=== PATIENT | male | born 1950 | race American Indian/Alaskan Native ===

== ENCOUNTER 2017-02-27 15:11 | Emergency (ER) | payer MEDICARE, OTHER ==
[2017-02-27 15:30] VITALS: BP 159/97; PULSE 71; TEMP 98.2; O2SAT 99
--- NOTE | 2017-02-27 16:02 | C.PDOC ---
History Of Present Illness 66 y/o male presents to the ED requesting heroin detox. Pt was in skilled nursing for 5 years, got out 2 months ago and started using heroin again. Pt has been using since age 14. Pt homeless without job. Now using 3-4 bags heroin daily. Denies any physical complaints or pmhx. Time Seen by Provider: 02/27/17 15:44 Chief Complaint (Nursing): Substance Abuse History Per: Patient History/Exam Limitations: no limitations Onset/Duration Of Symptoms: Days Suicide/Self Injury Attempted (Context): None Modifying Factor(s): Narcotics Severity: Mild Involuntary Hold By: None Recent travel outside of the [place]: No Past Medical History Reviewed: Historical Data, Nursing Documentation, Vital Signs Vital Signs: Last Vital Signs Temp 98.2 F 02/27/17 15:26 Pulse 71 02/27/17 15:26 Resp 18 02/27/17 16:04 BP 159/97 H 02/27/17 15:26 Pulse Ox 99 02/27/17 16:04 - Medical History PMH: HTN Family History: States: Unknown Family Hx - Social History Hx Alcohol Use: Yes Hx Substance Use: Yes Review Of Systems Except As Marked, All Systems Reviewed And Found Negative. Constitutional: Negative for: Fever Cardiovascular: Negative for: Chest Pain Respiratory: Negative for: Shortness of Breath Gastrointestinal: Negative for: Vomiting Neurological: Negative for: Headache Physical Exam - Physical Exam Appears: Non-toxic, No Acute Distress Skin: Warm, Dry, No Rash Head: Atraumatic, Normacephalic Neck: Normal, Normal ROM, Supple Chest: Symmetrical, No Tenderness Cardiovascular: Rhythm Regular, No Murmur Respiratory: Normal Breath Sounds, No Rales, No Rhonchi, No Wheezing Extremity: Bilateral: Atraumatic Neurological/Psych: Oriented x3 ED Course And Treatment O2 Sat by Pulse Oximetry: 99 (room air) Pulse Ox Interpretation: Normal Progress Note: Gave resources and custodial info to patient. No beds available at this time. Disposition - Disposition Disposition: HOME/ ROUTINE Disposition Time: 16:05 Condition: STABLE - Clinical Impression Clinical Impression: Opiate abuse, continuous - Scribe Statement The provider has reviewed the documentation as recorded by the Job López Provider Attestation: All medical record entries made by the Yobaniibrosa isela were at my direction and personally dictated by me. I have reviewed the chart and agree that the record accurately reflects my personal performance of the history, physical exam, medical decision making, and the department course for this patient. I have also personally directed, reviewed, and agree with the discharge instructions and disposition.
[2017-02-27 16:05] VITALS: RESP 18
== END 2017-02-27 16:04 | disposition home or self-care (01) ==
LOC: C.ER 15:11
DX: F11.10 Opioid abuse, uncomplicated (principal); Z59.0 Homelessness

== ENCOUNTER 2017-02-28 09:08 | Inpatient (IN) | payer MEDICARE, MEDICAID ==
--- NOTE | 2017-02-28 09:47 | C.PDOC ---
History Of Present Illness 66 y/o male presents to ED requesting alcohol and heroin detox. Patient was seen in ER yesterday for similar. Notes last use was yesterday. Denies any other medical complaints at this time. No suicidal or homicidal ideation. Time Seen by Provider: 02/28/17 09:24 Chief Complaint (Nursing): Substance Abuse History Per: Patient History/Exam Limitations: no limitations Onset/Duration Of Symptoms: Persistent Current Symptoms Are (Timing): Still Present Modifying Factor(s): Alcohol, Narcotics Associated Symptoms: denies: Suicidal Thoughts, Suicidal Plan Recent travel outside of the [place]: No Past Medical History Reviewed: Historical Data, Nursing Documentation, Vital Signs Vital Signs: Last Vital Signs Temp 97.8 F 02/28/17 09:15 Pulse 85 02/28/17 09:15 Resp 16 02/28/17 09:15 BP 158/96 H 02/28/17 09:15 Pulse Ox 98 02/28/17 09:47 - Medical History PMH: HTN Family History: States: Unknown Family Hx - Social History Hx Alcohol Use: Yes Hx Substance Use: Yes - Immunization History Hx Influenza Vaccination: No Review Of Systems Except As Marked, All Systems Reviewed And Found Negative. Constitutional: Negative for: Fever, Chills Cardiovascular: Negative for: Chest Pain, Palpitations Respiratory: Negative for: Shortness of Breath Gastrointestinal: Negative for: Vomiting, Abdominal Pain, Diarrhea Skin: Negative for: Rash Neurological: Negative for: Dizziness Psych: Negative for: Withdrawal Physical Exam - Physical Exam Appears: Non-toxic, No Acute Distress Skin: Warm, Dry Head: Atraumatic, Normacephalic Oral Mucosa: Moist Chest: Symmetrical Cardiovascular: Rhythm Regular Respiratory: Normal Breath Sounds, No Rales, No Rhonchi, No Wheezing Gastrointestinal/Abdominal: Soft, No Tenderness Back: Normal Inspection Extremity: Normal ROM, Capillary Refill (< 2 sec. ) Neurological/Psych: Oriented x3 ED Course And Treatment O2 Sat by Pulse Oximetry: 98 (RA) Pulse Ox Interpretation: Normal Medical Decision Making Medical Decision Making: Plan: * Crisis eval * Labs * Reassess Progress: - PA / [employer] / Resident Statement MD/DO has reviewed & agrees with the documentation as recorded. - Scribe Statement The provider has reviewed the documentation as recorded by the Job Tarango Provider Scribe Attestation: All medical record entries made by the Scribe were at my direction and personally dictated by me. I have reviewed the chart and agree that the record accurately reflects my personal performance of the history, physical exam, medical decision making, and the department course for this patient. I have also personally directed, reviewed, and agree with the discharge instructions and disposition.
[2017-02-28 09:48] LABS: RBC URINE 1 /hpf (0-3); URINE BILIRUBIN NEGATIVE (NEGATIVE); URINE BLOOD NEGATIVE (NEGATIVE); URINE GLUCOSE (UA) NORMAL (Normal); URINE KETONE NEGATIVE (NEGATIVE); URINE LEUKOCYTE ESTERASE NEG Leu/uL (Negative); URINE PROTEIN NEGATIVE (NEGATIVE); URINE UROBILINOGEN NORMAL mg/dL (0.2-1.0); WBC URINE 2 /hpf (0-5)
[2017-02-28 09:51] LABS: URINE COLOR LIGHT YELLOW (YELLOW)
[2017-02-28 10:26] LABS: BASO # 0.1 K/uL (0.0-0.2); BASO % 0.5 % (0.0-2.0); EOS # 0.5 K/uL (0.0-0.7); EOS % 3.9 % (0.0-4.0); HEMATOCRIT 46.1 % (35.0-51.0); LYMPH # 2.2 K/uL (1.0-4.3); LYMPH % 18.1 % (20.0-40.0); MEAN CELL VOLUME 96.1 fL (80.0-94.0); MEAN CORPUSCULAR HGB CONC 32.3 g/dL (33.0-37.0); MONO # 0.9 K/uL (0.0-0.8); MONO % 7.5 % (0.0-10.0); RED CELL DISTRIBUTION WIDTH 13.3 % (11.5-14.5); WHITE BLOOD COUNT 12.3 K/uL (4.8-10.8)
[2017-02-28 10:45] LABS: CHLORIDE 103 mmol/L (98-107); POTASSIUM 4.1 mmol/L (3.6-5.2); SODIUM 140 mmol/L (132-148)
[2017-02-28 10:47] LABS: BILIRUBIN,TOTAL 0.8 mg/dL (0.2-1.3); CARBON DIOXIDE 24 mmol/L (22-30); GFR AFRICAN-AMERICAN > 60
[2017-02-28 10:48] LABS: ALB/GLOB RATIO 1.3 (1.0-2.1); ALCOHOL SERUM < 10 mg/dl (0-10); ALKALINE PHOSPHATASE 72 U/L (38-126); ALT/SGPT 15 U/L (21-72); AST/SGOT 43 U/L (17-59); BLOOD UREA NITROGEN 22 mg/dL (9-20); CALCIUM 9.2 mg/dl (8.6-10.4); GLUCOSE,RANDOM 97 mg/dL (75-110); TOTAL PROTEIN 8.3 g/dL (6.3-8.3)
[2017-02-28] MEDS ORDERED: Aluminum Hydroxide/Magnesium Hydroxide Susp (30 mL) PO PRN (12:16)
--- NOTE | 2017-02-28 13:34 | PCM.PSYCH ---
Initial Psychiatric Evaluation - Initial Psychiatric Evaluation Type of Admission: Voluntary Legal Status: Capacity Chief Complaint (in patient's own words): "I need help" History of Present Illness and Precipitating Events: The patient is seen, chart reviewed and case discussed. This is a 66-year-old -Prydeinig male, we don't, has 1 daughter who is an adult, currently homeless, retired hoist worker. The patient states [facility] after 4-1/2 years and since then he has been using heroine and alcohol. Heroin is 3 bags per day and sometimes more and alcoholism more than 20 beers. He describes withdrawal symptoms from both. He smokes 10 cigarettes a day but refuses patch. He denies all other drugs. He has started using drugs "long ago." He has been to detox in the past but no rehabilitation. He has a long history of incarceration due to various reasons but overall he is pleasant, cooperative and looks motivated. He denies psychiatric symptoms Past psych history: Panic attacks. Family psych history: Denies Medical history: Fibromyalgia and high blood pressure. Current Medications: Active Medications Generic Name Dose Route Start Last Admin Trade Name Freq PRN Reason Stop Dose Admin Al Hydrox/Mg Hydrox/Simethicone 30 ml 02/28/17 12:16 Maalox 30 Ml PO TID PRN Indigestion / Heartburn Clonidine HCl 0.1 mg 02/28/17 12:16 Catapres PO Q8 PRN COWS Score More or Equal to 5 Hydroxyzine HCl 25 mg 02/28/17 12:17 Atarax PO Q4H PRN Anxiety Ibuprofen 400 mg 02/28/17 12:17 Motrin Tab PO Q6H PRN Pain, moderate (4-7) Loperamide HCl 2 mg 02/28/17 12:16 Imodium PO Q8 PRN Diarrhea Ondansetron HCl 4 mg 02/28/17 12:16 Zofran Tab PO Q8 PRN Nausea/Vomiting Trazodone HCl 50 mg 02/28/17 12:17 Desyrel PO HS PRN Insomnia Past Psychiatric History - Past Psychiatric History Previous Treatment History: None Pertinent Medical Hx (Current Medical&Sleep Prob, Allergies): Allergies Allergy/AdvReac Type Severity Reaction Status Date / Time No Known Allergies Allergy Verified 02/28/17 09:19 No Known Home Med 05/04/17 Review of Systems - Neurological Neurological: UNREMARKABLE - Psychiatric Psychiatric: Abnormal Sleep Pattern, Anxiety. absent: Hallucinations, Homicidal Ideation, Hopelessness, Paranoia, Suicidal Ideation Mental Status Examination - Personal Presentation Personal Presentation: Looks stated age - Affect Affect: Broad - Motor Activity Motor Activity: Calm - Reliability in Providing Information Reliability in Providing Information: Good - Speech Speech: Organized - Mood Mood: Anxious - Formal Thought Process Formal Thought Process: No Impairment - Cognitive Functions Orientation: Person, Place, Situation, Time Sensorium: Alert Attention/Concentration: Attentive Estimate of Intelligence: Average Judgement: Intact, as evidence by: Insight regarding need for hospitalization Memory: Recent intact, as evidence by: Ability to recall events of the day, Remote intact, as evidenced by: Abilit to recall sig. life events - Risk Risk: Withdrawal, Diminished functioning - Strength & Assets Inventory Strength & Assets Inventory: Cooperative - Limitations Limitations: Living alone DSM 5 DX - DSM 5 DSM 5 Diagnosis: Opioid withdrawal Opioid use disorder, moderate Alcohol use disorder, severe Alcohol withdrawal High blood pressure Fibromyalgia - Recommended/Plan of Treatment Treatment Recommendations and Plan of Treatment: Opioids: -Subutex detox -Support and psychoeducation -As needed medications -Attend groups and activities -NC and CBT Alcohol: -Librium detox -Gabapentin -Support and psychoeducation -As needed medications and vitamins -Attend groups and activities -NC and CBT for abstinence High blood pressure and fibromyalgia: -meds resumed -gabapentin for pain 33 min Projected ELOS: 4 or 5 days Prognosis: good with treatment Discharge Plan and Discharge Criteria: no withdrawal symptoms [facility] - Smoking Cessation Smoking Cessation Initiated: Yes
[2017-02-28] MEDS: Multiple Vitamins Tab PO SCH (14:42)
[2017-03-01] MEDS: Multiple Vitamins Tab PO SCH (09:48)
--- NOTE | 2017-03-01 10:15 | PCM.PYCHPN ---
Psychiatric Progress Note - Psychiatric Progress Note Patient seen today, length of contact: 16 min Patient Chief Complaint: I'm feeling better" Problems Identified/Issues Discussed: Pt is seen, chart reviewed, case discussed. Pt reports that he feels better today. He had a good night of sleep last night. He is complaining of night sweats, restless legs, and runny nose. He denies any tremors, abdominal cramping, nausea, vomiting, or diarrhea. Pt denies any medication side effects. He would like to go to [facility] after detox. Pt denies any anxiety or depression. Pt denies S/I. Support and psychoeducation given. Mental Status Examination - Cognitive Function Orientation: Person, Place, Situation, Time Memory: Intact Attention: WNL Concentration: Poor Association: WNL Fund of Knowledge: Poor - Mood Mood: Anxious - Affect Affect: Broad - Speech Speech: Soft - Formal Thought Process Formal Thought Process: No Impairment - Suicidal Ideation Suicidal Ideation: No - Homicidal Ideation Homicidal Ideation: No Goal/Treatment Plan - Goal/Treatment Plan Need for Continued Stay: Discharge may exacerbated symptoms, Severe functional impairment Progress Toward Problem(s) and Goals/Treatment Plan: Opioids: -Subutex detox -Support and psychoeducation -As needed medications -Attend groups and activities -DC and CBT Alcohol: -Librium detox -Gabapentin -Support and psychoeducation -As needed medications and vitamins -Attend groups and activities -DC and CBT for abstinence High blood pressure and fibromyalgia: -meds resumed -gabapentin for pain - Smoking Cessation Smoking Cessation Initiated: No
[2017-03-02] MEDS: Multiple Vitamins Tab PO SCH (09:47)
--- NOTE | 2017-03-02 11:54 | PCM.PYCHPN ---
Psychiatric Progress Note - Psychiatric Progress Note Patient seen today, length of contact: 16 min Patient Chief Complaint: I'm Still withdrawing" Problems Identified/Issues Discussed: Pt is seen, chart reviewed, case discussed. as per the patient he started developing withdrawal symptoms from heroin. He was started on methadone taper. He reports night sweats, abdominal cramping, nausea, vomiting, and and diarrhea. Pt denies any medication side effects. denies any suicidal ideation or homicidal ideation. He is tolerating the withdrawal medications very well and denied any side effects. Support and psychoeducation given. Medication Change: Yes (Methadone taper) Medical Record Reviewed: Yes Mental Status Examination - Cognitive Function Orientation: Person, Place, Situation, Time Memory: Intact Attention: WNL Concentration: Poor Association: WNL Fund of Knowledge: Poor - Mood Mood: Anxious - Affect Affect: Broad - Speech Speech: Soft - Formal Thought Process Formal Thought Process: No Impairment - Suicidal Ideation Suicidal Ideation: No - Homicidal Ideation Homicidal Ideation: No Goal/Treatment Plan - Goal/Treatment Plan Need for Continued Stay: Discharge may exacerbated symptoms, Severe functional impairment Progress Toward Problem(s) and Goals/Treatment Plan: Opioids: -Methadone taper -Support and psychoeducation -As needed medications -Attend groups and activities -NC and CBT Alcohol: -Librium detox -Gabapentin -Support and psychoeducation -As needed medications and vitamins -Attend groups and activities -NC and CBT for abstinence High blood pressure and fibromyalgia: -meds resumed -gabapentin for pain - Smoking Cessation Smoking Cessation Initiated: No
[2017-03-03] MEDS: Multiple Vitamins Tab PO SCH (09:50)
--- NOTE | 2017-03-03 10:46 | PCM.PYCHPN ---
Psychiatric Progress Note - Psychiatric Progress Note Patient seen today, length of contact: 16 min Patient Chief Complaint: I'm Still experiencing withdrawal symptoms" Problems Identified/Issues Discussed: Pt is seen, chart reviewed, case discussed. As per the staff patient is experiencing diarrhea and other withdrawal symptoms. Pt is complaining of abdominal cramping, sweating, joint pain and diarrhea. he reports irritable mood but denies anxiety or depression. Pt denies S/I. Pt denies any medication side effects. Support and psychoeducation given. Medication Change: Yes (Methadone taper) Medical Record Reviewed: Yes Mental Status Examination - Cognitive Function Orientation: Person, Place, Situation, Time Memory: Intact Attention: WNL Concentration: WNL Association: WNL Fund of Knowledge: Poor - Mood Mood: Anxious - Affect Affect: Broad - Speech Speech: Soft - Formal Thought Process Formal Thought Process: No Impairment - Suicidal Ideation Suicidal Ideation: No - Homicidal Ideation Homicidal Ideation: No Goal/Treatment Plan - Goal/Treatment Plan Need for Continued Stay: Discharge may exacerbated symptoms, Severe functional impairment Progress Toward Problem(s) and Goals/Treatment Plan: Opioids: -methadone taper -Support and psychoeducation -As needed medications -Attend groups and activities -GA and CBT Alcohol: -Librium detox -Gabapentin -Support and psychoeducation -As needed medications and vitamins -Attend groups and activities -GA and CBT for abstinence High blood pressure and fibromyalgia: -meds resumed -gabapentin for pain - Smoking Cessation Smoking Cessation Initiated: No
[2017-03-04] MEDS: Multiple Vitamins Tab PO SCH (09:50)
[2017-03-04 14:12] VITALS: RESP 18
--- NOTE | 2017-03-04 20:27 | PCM.PYCHPN ---
Psychiatric Progress Note - Psychiatric Progress Note Patient seen today, length of contact: 16 min Patient Chief Complaint: "I am pissed" Problems Identified/Issues Discussed: The pt is seen, chart reviewed, case discussed with staff. The pt is compliant with medications and reports no side-effects. Symptoms are improving but needs more time to stabilize. After care discussed, support and psychoeducation given. [place] and CBT used briefly. He is still trying to get to a [facility] Medication Change: Yes (Methadone taper) Medical Record Reviewed: Yes Mental Status Examination - Cognitive Function Orientation: Person, Place, Situation, Time Memory: Intact Attention: WNL Concentration: WNL Association: WN Fund of Knowledge: Poor - Mood Mood: Anxious - Affect Affect: Broad - Speech Speech: Soft - Formal Thought Process Formal Thought Process: No Impairment - Suicidal Ideation Suicidal Ideation: No - Homicidal Ideation Homicidal Ideation: No Goal/Treatment Plan - Goal/Treatment Plan Need for Continued Stay: Discharge may exacerbated symptoms, Severe functional impairment Progress Toward Problem(s) and Goals/Treatment Plan: Opioids: -Subutex detox -Support and psychoeducation -As needed medications -Attend groups and activities -[place] and CBT Alcohol: -Librium detox -Gabapentin -Support and psychoeducation -As needed medications and vitamins -Attend groups and activities -[place] and CBT for abstinence High blood pressure and fibromyalgia: -meds resumed -gabapentin for pain Estimated Date of D/C: 03/05/17
--- NOTE | 2017-03-05 08:51 | PCM.PYCHDC ---
Mental Status Examination - Mental Status Examination Orientation: Person, Place, Situation, Time Memory: Impaired Mood: Anxious Affect: Constricted Speech: Appropriate Attention: Poor Concentration: Poor Association: WNL Fund of Knowledge: WNL Formal Thought Process: No Impairment Suicidal Ideation: No Current Homicidal Ideation?: No Discharge Summary - Discharge Note Reason for Hospitalization: Alcohol and heroin detox Psychiatric History (includes Medical, Family, Personal Hx): Hx of depression long ago, in sn[facility], but he is vague and/or doesn't recall Consultations:: List each consultation separately and include: 1. Reason for request. 2. Findings. 3. Follow-up Summary of Hospital Course include:: 1. Description of specific treatment plan utilized for patients during their course of treatmen. 2. Summarize the time- course for resolution of acute symptoms and/or regressed behaviors. 3. Describe issues identified and worked on during hospitalization. 4. Describe medication utilized. 5. Describe medical problems identified and treated. 6. Reassessment of suicide risk Summary of Hospital Course: The patient is seen, chart reviewed and case discussed. On admission: This is a 66-year-old -Filipino male, we don't, has 1 daughter who is an adult, currently homeless, retired domestic laundry worker. The patient states he was released from [facility] in October after 4-1/2 years and since then he has been using heroine and alcohol. Heroin is 3 bags per day and sometimes more and alcoholism more than 20 beers. He describes withdrawal symptoms from both. He smokes 10 cigarettes a day but refuses patch. He denies all other drugs. He has started using drugs "long ago." He has been to detox in the past but no rehabilitation. He has a long history of incarceration due to various reasons but overall he is pleasant, cooperative and looks motivated. He denies psychiatric symptoms Past psych history: Panic attacks. Family psych history: Denies Medical history: Fibromyalgia and high blood pressure. Hospital course: The pt was admitted and started on treatment with psychotherapy, support, psychoeducation and medications. [place] and CBT used. The pt attended groups and activities, as well as milieu therapy. All the risks and benefits of medications are discussed and the patient understood and agreed. After care discussed with the patient. He declined to reveal why he was on disability to [email or web address], which then denied him. Then [facility] would take him but he highlighted the fact that he was "tto sick" (he was not) and that stopped his acceptance. Per staff, he voiced that he did not want [facility]. Pt is complaining of stomach cramps, claims he threw up, however no ther objective sxs elicited or observed. He was all fine yesterday and today, day of d/c, he is "not well." Pt is given one more dose of 5 mg methadone today and it helped. He was likely angry/anxious about d/c. However, he himself sabotaged his after care as both [facility] and [facility] were ready to accept him. He can still go to the latter. - Final Diagnosis (DSM 5) Condition upon Discharge: GOOD DSM 5: Opioid withdrawal Opioid use disorder, moderate Alcohol use disorder, severe Alcohol withdrawal Antisocial Personality Disorder High blood pressure Fibromyalgia Disposition: HOME/ ROUTINE Follow-up Treatment Plan: Continue below meds Attend aftercare: [facility] [place] after tomorrow Use relapse prevention skills Return to ER if experiencing suicidal ideation, homicidal ideation, agitation Attend NA Prescriptions/Medication Reconciliation: Gabapentin [Neurontin] 100 mg PO TID #90 cap Losartan [Cozaar] 25 mg PO DAILY #30 tab Metoprolol Tartrate [Lopressor] 25 mg PO BID #60 tab Multivitamins [Hexavitamin] 1 tab PO DAILY #30 tab - Smoking Cessation Smoking Cessation Medication prescribed: No - Antipsychotic Medications Pt discharged on 2 or more routine antipsychotic medications: No
[2017-03-05] MEDS: Multiple Vitamins Tab PO SCH (10:21)
[2017-03-05 10:54] VITALS: BP 115/72; PULSE 72; TEMP 98.2; O2SAT 98
== END 2017-03-05 11:15 | disposition home or self-care (01) | DRG 895 ==
LOC: C.ER 09:08 → C.7D 11:39
PROVIDERS: ADMIT Psychiatry & Neurology Psychiatry; ATTEND Psychiatry & Neurology Psychiatry
PROC: HZ2ZZZZ Detoxification Services for Substance Abuse Treatment (ICD-10-PCS; principal; 2017-02-28)
PROC: HZ59ZZZ Individual Psychotherapy for Substance Abuse Treatment, Supportive (ICD-10-PCS; 2017-02-28)
DX: F10.230 Alcohol dependence with withdrawal, uncomplicated (principal); I10 Essential (primary) hypertension; F11.23 Opioid dependence with withdrawal; F60.2 Antisocial personality disorder; M79.7 Fibromyalgia; F17.210 Nicotine dependence, cigarettes, uncomplicated; Z59.0 Homelessness